=== PATIENT | female | born 1950 | race Caucasian/White ===

== ENCOUNTER 2016-11-29 16:53 | Inpatient (IN) | payer OTHER ==
[~2016-11-29] VITALS: Ht 147.3 cm; Wt 68.2 kg
[2016-11-29] MEDS ORDERED: ONDANSETRON 4MG/2ML VIAL (J2405) IV ONE (17:30)
[2016-11-29] MEDS: MORPHINE 2 MG/ML 1ML SYRINGE IV PRN ×2 (17:51→18:37)
[2016-11-29 18:05] LABS: MEAN CORPUSCULAR VOLUME 91.1 fl (80.0-96.0); RED CELL DISTRIBUTION WIDTH 12.2 % (11.5-14.5); WHITE BLOOD COUNT 14.5 K/mm3 (4.0-10.0)
[2016-11-29 18:12] LABS: ANION GAP 8 MEQ/L (8-16); BLOOD UREA NITROGEN 16 MG/DL (7-18); CALCIUM LEVEL 8.7 MG/DL (8.8-10.2); CARBON DIOXIDE LEVEL 25 MEQ/L (21-32); CHLORIDE LEVEL 110 MEQ/L (98-107); CREATININE FOR GFR 0.72 MG/DL (0.55-1.02); GLOMERULAR FILTRATION RATE > 60.0 (>45); GLUCOSE, FASTING 108 MG/DL (80-110); POTASSIUM SERUM 4.4 MEQ/L (3.5-5.1); SODIUM LEVEL 143 MEQ/L (136-145)
[2016-11-29] MEDS ORDERED: ISOVUE-370 76% 100ML VIAL (Q9967) As Ordered ONE (18:15)
--- NOTE | 2016-11-29 18:51 | REP ---
Clinical: Trauma. Technique: Axial contrast enhanced images from the lung bases to the pubic symphysis using 100 ml Isovue 370 intravenous contrast material with coronal and sagittal re-formations. Findings: There is an acute compression/burst fracture involving the L1 vertebral body with fracture also identified through the right lamina and retropulsed fracture fragments which narrow the canal to 8 mm in AP diameter (16 mm diameter at levels above and below the fracture). The remainder of the lumbar spine and osseous structures demonstrate age-related degenerative changes without further acute fracture or injury. There is no evidence for solid organ injury. Liver, spleen, pancreas, left adrenal gland and right kidney are essentially normal. A 11 mm rim calcified splenic cyst appears chronic. Small amount of pericholecystic fluid surrounding the gallbladder cannot be excluded and is nonspecific. A 1.6 cm right adrenal lesion likely represents adenoma but requires further investigation. A 4.0 cm left renal cyst is identified and appear simple/benign. The enteric system is without obstruction or acute inflammatory process. Sigmoid diverticula noted without acute diverticulitis. Pelvis demonstrates normal bladder and age-appropriate uterus/adnexa. No ascites. No free air. No adenopathy. Vascular structures are intact and normal. Impression: 1. Compression/a burst fracture involving the L1 vertebral body with associated fracture through the right lamina as well as retropulsion narrowing the canal to 8 mm. 2. Small amount of pericholecystic fluid is nonspecific. 3. Further chronic changes as described above. 4. No further acute abdominopelvic pathology or trauma/injury. Signed by Josue Grande MD 11/29/2016 06:43 P
--- NOTE | 2016-11-29 18:57 | REP ---
Clinical: Trauma. Technique: Axial noncontrast images from T12 through mid sacrum with coronal and sagittal re-formations. Findings: There is a compression/burst fracture involving the L1 vertebral body which demonstrates approximately 30% loss of vertebral body height as well as a fracture through the right posterior lamina and retropulsed fracture fragments which narrow the spinal canal to 8 mm in AP diameter as opposed to 16 mm diameter at the levels above and below the fracture. The remainder of the visualized lumbosacral spine demonstrates moderate multilevel degenerative changes including marginal spurring/early osteophyte formation, disc space narrowing and mild hypertrophic facet changes. The remainder of the spinal canal appears patent and normal. The spinous processes are intact. The paravertebral soft tissues are relatively normal. Incidental note is made of a 4 cm left renal cyst and suspected 1.5 cm right adrenal lesion which may represent adenoma. Impression: 1. Compression/burst fracture involving L1 as described above including retropulsed fracture fragments which narrow the canal to 8 mm. 2. Remainder examination demonstrates moderate multilevel degenerative changes. Signed by Josue Grande MD 11/29/2016 06:48 P
--- NOTE | 2016-11-29 19:31 | REP ---
Clinical: Trauma. Technique: Axial noncontrast images from the thoracic inlet to the upper abdomen with coronal and sagittal re-formations. Findings: The bilateral lung reid are well-aerated and relatively clear. A small area of opacity in the medial right middle lobe may represent mild contusion. Underlying age-related chronic interstitial changes and mild bronchiectasis noted. No further significant consolidation, pleural effusion or pneumothorax. Mediastinum demonstrates normal thoracic aorta and heart/pericardium, and there is no evidence for mediastinal injury. Musculoskeletal structures of the thorax appear intact without evidence for trauma. The patient's known L1 burst fracture is identified. Impression: 1. Small area of atelectasis versus contusion involving the medial right middle lobe. 2. No other acute mediastinal or pleuroparenchymal pathology or trauma/injury appreciated. 3. The patient's known L1 burst fracture is visualized. Signed by Josue Grande MD 11/29/2016 07:23 P
[2016-11-29 22:00] VITALS: BP 150/69
[2016-11-29] MEDS: ACETAMINOPHEN TAB 650MG DOSE (2X325MG) PO SCH (22:01)
[2016-11-30] MEDS: ACETAMINOPHEN TAB 650MG DOSE (2X325MG) PO SCH ×6 (01:08→22:38)
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
[2016-11-30 06:00] VITALS: BP 109/56
[2016-11-30] MEDS ORDERED: ONDANSETRON 4MG/2ML VIAL (J2405) IV SCH (11:15)
[2016-11-30] MEDS: MORPHINE 2 MG/ML 1ML SYRINGE IV PRN ×3 (11:27→19:44)
[2016-11-30] MEDS: ONDANSETRON 4MG/2ML VIAL (J2405) IV PRN ×2 (11:27→17:35)
[2016-11-30] MEDS: KCL 20MEQ IN D5/NS 1000ML 1,000 ML IV SCH ×2 (13:05→22:39)
[2016-11-30 14:00] VITALS: BP 130/72
[2016-11-30 22:00] VITALS: BP 111/75
[2016-12-01] MEDS: ONDANSETRON 4MG/2ML VIAL (J2405) IV PRN ×3 (01:54→19:59)
[2016-12-01] MEDS: MORPHINE 2 MG/ML 1ML SYRINGE IV PRN ×5 (01:54→20:00)
[2016-12-01] MEDS: ACETAMINOPHEN TAB 650MG DOSE (2X325MG) PO SCH ×6 (01:56→22:31)
[2016-12-01 06:00] VITALS: BP 110/56
[2016-12-01] MEDS: HEPARIN SOD (PORCINE) 5000 UNITS/ML VIAL SQ SCH ×3 (06:00→22:31)
[2016-12-01] MEDS: LACTULOSE 20 GM/30 ML SYRUP UD PO SCH (09:00)
[2016-12-01] MEDS ORDERED: PREVNAR 13 VACCINE SYRINGE (CPT CODE:90670) IM ONE (09:00)
[2016-12-01 14:00] VITALS: BP 124/76
[2016-12-01] MEDS ORDERED: GLYCERIN ADULT SUPP PR PRN (16:00)
[2016-12-01] MEDS: CARISOPRODOL 350 MG TAB PO SCH ×2 (16:35→22:30)
[2016-12-01 22:00] VITALS: BP 138/70
[2016-12-01] MEDS: DOCUSATE SODIUM 100 MG CAP PO SCH (22:31)
[2016-12-02] MEDS: ONDANSETRON 4MG/2ML VIAL (J2405) IV PRN (01:35)
[2016-12-02] MEDS: ACETAMINOPHEN TAB 650MG DOSE (2X325MG) PO SCH ×6 (01:35→21:17)
[2016-12-02] MEDS: MORPHINE 2 MG/ML 1ML SYRINGE IV PRN ×2 (01:36→18:53)
[2016-12-02 06:00] VITALS: BP 114/68
[2016-12-02] MEDS: HEPARIN SOD (PORCINE) 5000 UNITS/ML VIAL SQ SCH ×3 (06:46→21:18)
[2016-12-02] MEDS: DOCUSATE SODIUM 100 MG CAP PO SCH ×2 (08:48→21:00)
[2016-12-02] MEDS: CARISOPRODOL 350 MG TAB PO SCH ×3 (08:48→21:17)
[2016-12-02] MEDS: LACTULOSE 20 GM/30 ML SYRUP UD PO SCH (08:49)
[2016-12-02 14:00] VITALS: BP 125/77
[2016-12-02 22:00] VITALS: BP 117/57
[2016-12-03] MEDS: ACETAMINOPHEN TAB 650MG DOSE (2X325MG) PO SCH ×4 (02:30→13:07)
[2016-12-03] MEDS: MORPHINE 2 MG/ML 1ML SYRINGE IV PRN ×2 (02:30→06:10)
[2016-12-03 06:00] VITALS: BP 117/59
[2016-12-03] MEDS: HEPARIN SOD (PORCINE) 5000 UNITS/ML VIAL SQ SCH (06:10)
[2016-12-03] MEDS: LACTULOSE 20 GM/30 ML SYRUP UD PO SCH (09:00)
[2016-12-03] MEDS ORDERED: INFLUENZA VIRUS VACCINE HIGH DOSE 0.5 ML SYRINGE (90662) IM ONE (09:00)
[2016-12-03] MEDS: CARISOPRODOL 350 MG TAB PO SCH (09:23)
[2016-12-03] MEDS: DOCUSATE SODIUM 100 MG CAP PO SCH (09:23)
[2016-12-03] MEDS ORDERED: TYLE325T5 PO (12:07)
[2016-12-03] MEDS ORDERED: ACET1TAB16 PO (12:11)
[2016-12-03] MEDS ORDERED: COLA100C5 PO (12:11)
[2016-12-03] MEDS ORDERED: SOMA350T PO (12:11)
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
== END 2016-12-03 13:30 | disposition home or self-care (01) | DRG 347 ==
LOC: EDBD 16:53 → M ED 16:53 → M ED INP 20:10 → M MS5PR 21:30
PROVIDERS: ADMIT Neurological Surgery; ATTEND Neurological Surgery
DX: S32.011A Stable burst fracture of first lumbar vertebra, initial encounter for closed fracture (principal); S30.1XXA Contusion of abdominal wall, initial encounter; V48.6XXA Car passenger injured in noncollision transport accident in traffic accident, initial encounter; Y92.410 Unspecified street and highway as the place of occurrence of the external cause; Y93.9 Activity, unspecified; Y99.9 Unspecified external cause status; Z87.891 Personal history of nicotine dependence; S70.11XA Contusion of right thigh, initial encounter; S70.12XA Contusion of left thigh, initial encounter